=== PATIENT | male | born 1945 | race Caucasian/White ===

== ENCOUNTER 2020-10-04 13:51 | Observation (INO) | payer MEDICARE, BC ==
[2020-10-04 14:17] LABS: PTT,PARTIAL THROMBOPLSTIN TIME 24.4 SEC (23.2-32.3)
[2020-10-04 14:25] LABS: CHLORIDE,CL 100 mEq/L (98-106); SODIUM,NA 137 mEq/L (136-145)
[2020-10-04] MEDS ORDERED: Iopamidol 755 Mg/ML 100 ML Bottle IVPUSH ONE (15:13)
[2020-10-04] MEDS ORDERED: Sodium Chloride 0.9% 1,000 ML IV ONE (15:43)
[2020-10-04] MEDS ORDERED: Acetaminophen 325 MG Tab PO PRN (16:54)
[2020-10-04] MEDS ORDERED: Acetaminophen 500 MG Tab PO PRN (16:57)
[2020-10-04] MEDS: Apixaban 5 MG Tab PO SCH ×2 (18:23→19:01)
[2020-10-04] MEDS ORDERED: [UNRECOGNIZED DRUG - REMARK] PO SCH (20:00)
[2020-10-05] MEDS: Apixaban 5 MG Tab PO SCH (07:36)
[2020-10-05 07:40] VITALS: BP 130/61; PULSE 57
[2020-10-05] MEDS ORDERED: Aspirin 81 MG Tab.EC PO SCH (08:00)
[2020-10-05] MEDS ORDERED: Losartan 25 MG Tab PO SCH (08:00)
[2020-10-05] MEDS ORDERED: Simvastatin 40 MG Tab PO SCH (08:00)
[2020-10-05] MEDS ORDERED: Tamsulosin 0.4 MG Cap.ER PO SCH (08:00)
--- NOTE | 2020-10-05 09:37 | PCM.DCSUM1 ---
Discharge Summary - Hospital Course HPI Initial Comments: Efrain is a 75 yo gentleman who was admitted to the hospital yesterday for a PE. Patient was diagnosed with COVID on the 24 of September with onset of symptoms on the 17 of September. Patient had continued to feel tired, weak, dizzy,short of breath and right sided chest and back pain that just recently started. Patient had further work up and underwent CTA of the chest which did show a pulmonary embolism. Dr. Lindquist was in consultation with [place] on admit and agreed with initiating Eliquis and admission for close monitoring. Diagnosis: Stroke: No - Discharge Data Discharge Date: 10/05/20 Discharge Disposition: Home, Self-Care 01 Condition: Good - Referral to Home Health Primary Care Physician: Sage Lindquist MD - Discharge Diagnosis/Problem(s) (1) Pulmonary embolism associated with COVID-19 SNOMED Code(s): 566988422 ICD Code: U07.1 - COVID-19; I26.99 - OTHER PULMONARY EMBOLISM WITHOUT ACUTE COR PULMONALE Status: Acute Current Visit: Yes - Patient Summary/Data Hospital Course: Patient has done well during his time in the hospital. Patient hasn't required any oxygen with oxygen saturation maintaining in the mid 90's on room air. Telemetry has been benign since admit. - Patient Instructions Diet: Usual Diet as Tolerated Activity: As Tolerated - Discharge Plan *PRESCRIPTION DRUG MONITORING PROGRAM REVIEWED*: Not Applicable *COPY OF PRESCRIPTION DRUG MONITORING REPORT IN PATIENT MADDIE: Not Applicable Prescriptions/Med Rec: Apixaban [Eliquis] 5 mg PO BID #60 tablet Home Medications: Home Meds Acetaminophen [Tylenol Extra Strength] 1,000 mg PO BID PRN 08/28/16 [History] Chlorpheniramine Maleate [Allergy] 2 tab PO BEDTIME 08/28/16 [History] Ibuprofen 400 mg PO QID PRN 08/28/16 [History] Simvastatin [Zocor] 40 mg PO DAILY 08/28/16 [History] Tamsulosin HCl [Flomax] 0.4 cap PO DAILY 08/28/16 [History] Losartan/Hydrochlorothiazide [Losartan-HCTZ 100-12.5 MG] 1 each PO DAILY 10/04/20 [History] Apixaban [Eliquis] 5 mg PO BID #60 tablet 10/05/20 [Rx] Aspirin [Halfprin] 81 mg PO DAILY tab.ec 10/05/20 [Rx] Oxygen Therapy Mode: Room Air Patient Handouts: Pulmonary Embolism Referrals: Sage Lindquist MD [Primary Care Provider] - (2 weeks) - Discharge Summary/Plan Comment DC Time >30 min.: Yes Discharge Summary/Plan Comment: Patient hasn't had any set backs. Dr. Lindquist discussed current treatment and will discharge home today on Eliquis. Patient is to follow up with Dr. Lindquist in 2 weeks. May return to normal activity as tolerated. Discussed importance of deep breaths and symptoms to monitor for. Patient will be discharged today. Labs are stable with comparison to yesterday. Vital signs stable. - General Info Date of Service: 10/05/20 Functional Status: Reports: Pain Controlled, Tolerating Diet, Ambulating. Denies: New Symptoms - Review of Systems General: Reports: Fatigue HEENT: Reports: No Symptoms Pulmonary: Reports: Shortness of Breath, Pleuritic Chest Pain, Cough. Denies: Wheezing Cardiovascular: Reports: No Symptoms Gastrointestinal: Reports: No Symptoms Genitourinary: Reports: No Symptoms Skin: Reports: No Symptoms Neurological: Reports: No Symptoms - Patient Data Vitals - Most Recent: Last Vital Signs Temp 98.1 F 10/05/20 07:38 Pulse 57 L 10/05/20 07:38 Resp 18 10/05/20 07:38 BP 130/61 10/05/20 07:38 Pulse Ox 96 10/05/20 07:38 Weight - Most Recent: 210 lb Lab Results - Last 24 hrs: Laboratory Results - last 24 hr 10/04/20 10/04/20 10/04/20 Range/Units 13:58 13:59 13:59 WBC 7.3 (5.0-10.0) 10^3/uL RBC 4.43 L (4.50-6.00) 10^6/uL Hgb 13.6 L (14.0-18.0) g/dL Hct 41.2 (40.0-54.0) % MCV 93.0 (82.0-94.0) fL MCH 30.7 (27.0-32.0) pg MCHC 33.0 (33.0-38.0) g/dL RDW Coeff of Nhan 12.8 (11.0-15.0) % Plt Count 318 (150-400) 10^3/uL Neut % (Auto) 72.3 (35-85) % Lymph % (Auto) 13.4 (10-55) % [place] % (Auto) 13.1 (0-16) % Eos % (Auto) 1.1 (0-5) % Baso % (Auto) 0.1 (0-3) % Neut # (Auto) 5.24 (1.80-7.00) 10^3/uL Lymph # (Auto) 0.97 L (1.00-4.80) 10^3/uL [place] # (Auto) 0.95 H (0.00-0.80) 10^3/uL Eos # (Auto) 0.08 (0.00-0.45) 10^3/uL Baso # (Auto) 0.01 10^3/uL PT 11.1 (9.7-12.3) SEC INR 1.10 (0.92-1.18) APTT 24.4 (23.2-32.3) SEC D-Dimer, Quantitative (0.00-0.50) Sodium 137 (136-145) mEq/L Potassium 4.1 (3.5-5.0) mEq/L Chloride 100 (98-106) mEq/L Carbon Dioxide 30 (21-32) mmol/L BUN 23 H (7-18) mg/dL Creatinine 1.4 H (0.7-1.3) mg/dL Est Cr Clr Drug Dosing TNP Estimated GFR (MDRD) 50 L (>=60) mL/min Glucose 102 H (75-99) mg/dL Calcium 9.1 (8.4-10.1) mg/dL Total Bilirubin 0.7 (0.0-1.0) mg/dL AST 19 (15-37) U/L ALT 35 (12-78) U/L Alkaline Phosphatase 80 (46-116) U/L Creatine Kinase 47 (35-232) U/L Troponin I < 0.017 (0.00-0.06) ng/mL C-Reactive Protein 13.3 H (0.2-0.8) mg/dL NT-Pro-B Natriuret Pep 65 (0-1000) pg/mL Total Protein 7.7 (6.4-8.2) g/dL Albumin 3.1 L (3.4-5.0) g/dL 10/04/20 10/05/20 10/05/20 Range/Units 14:35 05:11 07:10 WBC 9.2 (5.0-10.0) 10^3/uL RBC 4.02 L (4.50-6.00) 10^6/uL Hgb 12.6 L (14.0-18.0) g/dL Hct 36.9 L (40.0-54.0) % MCV 91.8 (82.0-94.0) fL MCH 31.3 (27.0-32.0) pg MCHC 34.1 (33.0-38.0) g/dL RDW Coeff of Nhan 12.5 (11.0-15.0) % Plt Count 304 (150-400) 10^3/uL Neut % (Auto) 77.1 (35-85) % Lymph % (Auto) 9.3 L (10-55) % Sevier % (Auto) 11.7 (0-16) % Eos % (Auto) 1.7 (0-5) % Baso % (Auto) 0.2 (0-3) % Neut # (Auto) 7.06 H (1.80-7.00) 10^3/uL Lymph # (Auto) 0.85 L (1.00-4.80) 10^3/uL Sevier # (Auto) 1.07 H (0.00-0.80) 10^3/uL Eos # (Auto) 0.16 (0.00-0.45) 10^3/uL Baso # (Auto) 0.02 10^3/uL PT (9.7-12.3) SEC INR (0.92-1.18) APTT (23.2-32.3) SEC D-Dimer, Quantitative 4.40 H (0.00-0.50) Sodium 134 L (136-145) mEq/L Potassium 4.2 (3.5-5.0) mEq/L Chloride 101 (98-106) mEq/L Carbon Dioxide 26 (21-32) mmol/L BUN 19 H (7-18) mg/dL Creatinine 1.3 (0.7-1.3) mg/dL Est Cr Clr Drug Dosing 52.25 Estimated GFR (MDRD) 54 L (>=60) mL/min Glucose 118 H (75-99) mg/dL Calcium 8.5 (8.4-10.1) mg/dL Total Bilirubin (0.0-1.0) mg/dL AST (15-37) U/L ALT (12-78) U/L Alkaline Phosphatase (46-116) U/L Creatine Kinase (35-232) U/L Troponin I (0.00-0.06) ng/mL C-Reactive Protein (0.2-0.8) mg/dL NT-Pro-B Natriuret Pep (0-1000) pg/mL Total Protein (6.4-8.2) g/dL Albumin (3.4-5.0) g/dL Med Orders - Current: Current Medications Acetaminophen (Tylenol) 650 mg PO Q4H PRN PRN Reason: Pain (Mild 1-3)/fever Acetaminophen (Tylenol Extra Strength) 1,000 mg PO BID PRN PRN Reason: Pain Last Admin: 10/05/20 06:13 Dose: 1,000 mg Documented by: Apixaban (Eliquis) 10 mg PO BID MAGGY Stop: 10/10/20 20:01 Last Admin: 10/05/20 07:36 Dose: 10 mg Documented by: Aspirin (Halfprin) 81 mg PO DAILY [facility] Losartan Potassium (Cozaar) 50 mg PO DAILY [facility] Non-Formulary Medication (Chlorpheniramine Maleate [Allergy]) 2 tab PO BEDTIME [facility] Simvastatin (Zocor) 40 mg PO DAILY [facility] Tamsulosin HCl (Flomax) 0.4 mg PO DAILY [facility] Discontinued Medications Sodium Chloride (Normal Saline) 1,000 mls @ 999 mls/hr IV .BOLUS ONE Stop: 10/04/20 16:43 Last Admin: 10/04/20 15:59 Dose: 999 mls/hr Documented by: Iopamidol (Isovue-370 (76%)) 100 ml IVPUSH ONETIME ONE Stop: 10/04/20 15:14 Last Admin: 10/04/20 15:37 Dose: 100 ml Documented by: - Exam General: Reports: Alert, Oriented, Cooperative, No Acute Distress Neck: Reports: Supple Lungs: Reports: Clear to Auscultation, Normal Respiratory Effort Cardiovascular: Reports: Regular Rate, Regular Rhythm, No Murmurs GI/Abdominal Exam: Normal Bowel Sounds, Soft, Non-Tender Extremities: Normal Inspection, Non-Tender, No Pedal Edema Skin: Reports: Warm, Dry, Intact Psy/Mental Status: Reports: Alert, Normal Affect, Normal Mood
== END 2020-10-05 11:02 | disposition home or self-care (01) ==
LOC: CC.ACU 13:51 → CC.FCMC 13:51 → CC.MS 16:32 → UNDOADMOB 16:32 → CC.MS 16:54
PROVIDERS: ADMIT Nurse Practitioner Family; ATTEND Family Medicine
DX: U07.1 COVID-19 (principal); I26.99 Other pulmonary embolism without acute cor pulmonale; I10 Essential (primary) hypertension; N40.0 Benign prostatic hyperplasia without lower urinary tract symptoms; M16.9 Osteoarthritis of hip, unspecified; E78.5 Hyperlipidemia, unspecified; Z98.890 Other specified postprocedural states; Z79.899 Other long term (current) drug therapy; Z88.8 Allergy status to other drugs, medicaments and biological substances
CPT/HCPCS: 36415; 71046; 71275; 80048; 80053; 82550; 83880; 84484; 85025; 85379; 85610; 85730; 86140; 93005; A9270-GY; G0378; J7030; Q9967

== ENCOUNTER 2020-10-11 09:29 | Emergency (ER) | payer MEDICARE, BC ==
[2020-10-11 10:01] VITALS: PULSE 71
[2020-10-11 10:21] VITALS: BP 145/84
--- NOTE | 2020-10-11 11:11 | EDM.PDOC ---
ED HPI GENERAL MEDICAL PROBLEM - General Chief Complaint: General Stated Complaint: SOB/WEAK/COUGH/HEADACHE Time Seen by Provider: 10/11/20 10:54 Source of Information: Reports: Patient, Family () History Limitations: Reports: No Limitations - History of Present Illness INITIAL COMMENTS - FREE TEXT/NARRATIVE: States that his head feels "foggy and he has been having some headaches" since he had COVID. Also concerned about some bloating and feeling full in abdomen. He did have 3 BM this AM and since then his abdomen has improved. He states that the first 2 were formed and the 3rd one was more liquid. He denies any blood in the stool. No difficulty with urination. Had temp of 99.5 during the night which he has been having since he had COVID. No vomiting but states that his appetite hasn't been as good as before COVID. He has had some nausea which I discussed with them as possible side effect of the Eliquis. No chest pain or difficulty breathing. Onset: Gradual Generalized Pain Score (Numeric/FACES): 2 - Related Data Allergies Allergy/AdvReac Type Severity Reaction Status Date / Time lisinopril Allergy Rash Verified 10/04/20 17:04 tramadol Allergy Dizziness Verified 10/04/20 17:04 Home Meds: Home Meds Acetaminophen [Tylenol Extra Strength] 1,000 mg PO BID PRN 08/28/16 [History] Simvastatin [Zocor] 40 mg PO DAILY 08/28/16 [History] Tamsulosin HCl [Flomax] 0.4 cap PO DAILY 08/28/16 [History] Losartan/Hydrochlorothiazide [Losartan-HCTZ 100-12.5 MG] 1 each PO DAILY 10/04/20 [History] Apixaban [Eliquis] 5 mg PO BID #60 tablet 10/05/20 [Rx] DULoxetine [Cymbalta] 30 mg PO DAILY 10/11/20 [History] Meloxicam 15 mg PO DAILY 10/11/20 [History] diphenhydrAMINE [Benadryl] 50 mg PO BEDTIME PRN 10/11/20 [History] Past Medical History HEENT History: Reports: Impaired Vision Cardiovascular History: Reports: Hypertension Respiratory History: Reports: PE - Infectious Disease History Infectious Disease History: Reports: Other (See Below) (COVID) - Past Surgical History Cardiovascular Surgical History: Reports: None GI Surgical History: Reports: Colonoscopy Musculoskeletal Surgical History: Reports: Hip Replacement Social & Family History - Tobacco Use Tobacco Use Status *Q: Never Tobacco User - Caffeine Use Caffeine Use: Reports: None - Recreational Drug Use Recreational Drug Use: No - Living Situation & Occupation Living situation: Reports: , with Spouse Occupation: Retired ED ROS GENERAL - Review of Systems Review Of Systems: See Below Constitutional: Reports: Fever (up to 99.5 in the evening or during the night.) HEENT: Reports: No Symptoms Respiratory: Reports: No Symptoms Cardiovascular: Reports: No Symptoms GI/Abdominal: Reports: Abdominal Pain, Constipation, Nausea : Reports: No Symptoms Musculoskeletal: Reports: No Symptoms Skin: Reports: No Symptoms Neurological: Reports: Headache, Other ("brain foggy") Psychiatric: Reports: Anxiety ED EXAM, GENERAL - Physical Exam Exam: See Below Exam Limited By: No Limitations General Appearance: Alert, WD/WN, Mild Distress Ears: Normal External Exam, Normal Canal Nose: Normal Inspection Throat/Mouth: Normal Inspection, Normal Oropharynx, No Airway Compromise Head: Atraumatic, Normocephalic Neck: Normal Inspection, Supple, Non-Tender, Full Range of Motion Respiratory/Chest: Lungs Clear, Normal Breath Sounds Cardiovascular: Normal Peripheral Pulses, Regular Rate, Rhythm, No Edema GI/Abdominal: Normal Bowel Sounds, Soft, Non-Tender Back Exam: Normal Inspection Extremities: Normal Inspection, No Pedal Edema, Normal Capillary Refill Neurological: Alert, Oriented Psychiatric: Normal Affect Skin Exam: Warm, Dry, Intact Course - Vital Signs Last Recorded V/S: Last Vital Signs Temp 99.5 F 10/11/20 09:55 Pulse 71 10/11/20 09:55 Resp 16 10/11/20 09:55 BP 145/84 H 10/11/20 10:20 Pulse Ox 99 10/11/20 09:55 - Orders/Labs/Meds Orders: Active Orders 24 hr Category Date Time Status CULTURE URINE [RM] Stat Lab 10/11/20 09:52 Received Labs: Laboratory Tests 10/11/20 10/11/20 10/11/20 Range/Units 09:52 10:05 10:05 WBC 8.3 (5.0-10.0) 10^3/uL RBC 4.35 L (4.50-6.00) 10^6/uL Hgb 13.6 L (14.0-18.0) g/dL Hct 40.1 (40.0-54.0) % MCV 92.2 (82.0-94.0) fL MCH 31.3 (27.0-32.0) pg MCHC 33.9 (33.0-38.0) g/dL RDW Coeff of Nhan 12.7 (11.0-15.0) % Plt Count 525 H (150-400) 10^3/uL Neut % (Auto) 71.6 (35-85) % Lymph % (Auto) 12.6 (10-55) % [place] % (Auto) 12.7 (0-16) % Eos % (Auto) 2.9 (0-5) % Baso % (Auto) 0.2 (0-3) % Neut # (Auto) 5.96 (1.80-7.00) 10^3/uL Lymph # (Auto) 1.05 (1.00-4.80) 10^3/uL [place] # (Auto) 1.06 H (0.00-0.80) 10^3/uL Eos # (Auto) 0.24 (0.00-0.45) 10^3/uL Baso # (Auto) 0.02 10^3/uL Sodium 138 (136-145) mEq/L Potassium 4.5 (3.5-5.0) mEq/L Chloride 100 (98-106) mEq/L Carbon Dioxide 28 (21-32) mmol/L BUN 22 H (7-18) mg/dL Creatinine 1.4 H (0.7-1.3) mg/dL Est Cr Clr Drug Dosing 48.52 mL/min Estimated GFR (MDRD) 50 L (>=60) mL/min Glucose 102 H (75-99) mg/dL Calcium 9.9 (8.4-10.1) mg/dL Total Bilirubin 0.5 (0.0-1.0) mg/dL AST 45 H (15-37) U/L ALT 124 H (12-78) U/L Alkaline Phosphatase 90 (46-116) U/L Lactate Dehydrogenase 218 H (100-190) U/L Creatine Kinase 117 (35-232) U/L Troponin I 0.018 (0.00-0.06) ng/mL Total Protein 8.6 H (6.4-8.2) g/dL Albumin 3.3 L (3.4-5.0) g/dL Urine Color Yellow (YELLOW) Urine Appearance Clear (CLEAR) Urine pH 7.0 (4.5-8.0) Ur Specific [place] 1.020 (1.003-1.020) Urine Protein Negative (NEGATIVE) mg/dL Urine Glucose (UA) Negative (NEGATIVE) mg/dL Urine Ketones Negative (NEGATIVE) mg/dL Urine Occult Blood Small H (NEGATIVE) Urine Nitrite Negative (NEGATIVE) Urine Bilirubin Negative (NEGATIVE) Urine Urobilinogen 0.2 (0.2-1.0) EU/dL Ur Leukocyte Esterase Trace H (NEGATIVE) Urine RBC 0-5 (0-5) /HPF Urine WBC 10-20 H (0-5) /HPF Urine WBC Clumps Occasional H (NOT SEEN) /HPF Urine Bacteria Few H (NOT SEEN) /HPF - Re-Assessments/Exams Free Text/Narrative Re-Assessment/Exam: 10/11/20 1040- In to discuss the lab results with the pt and . Reassured that all were good. Liver enzymes are elevated slightly which si from the Eliquis. Nausea is most likely side effect of the ELiquis. As the abdominal discomfort improved after the BM this AM most likely due to constipation. Discussed that he brain fog that he is talking about could potentially last for several weeks to months. Low grade temps in the 99 range are not concerning at this time. Departure - Departure Time of Disposition: 11:08 Disposition: Home, Self-Care 01 Condition: Fair Clinical Impression: [id number] condition, Pulmonary embolism associated with COVID-19 - Discharge Information *PRESCRIPTION DRUG MONITORING PROGRAM REVIEWED*: Not Applicable *COPY OF PRESCRIPTION DRUG MONITORING REPORT IN PATIENT MADDIE: Not Applicable Instructions: COVID-19 Frequently Asked Questions Referrals: Sage Lindquist MD [Primary Care Provider] - Forms: ED Department Discharge Additional Instructions: Be as active as tolerated No ASA, ibuprofen, advil etc. Stop the Meloxicam Recheck with new concerns. Sepsis Event Note (ED) - Evaluation Sepsis Screening Result: No Definite Risk - Focused Exam Vital Signs: Vital Signs Temp Pulse Resp BP Pulse Ox 10/11/20 10:20 145/84 H 10/11/20 09:55 99.5 F 71 16 123/79 99 - Problem List & Annotations (1) [id number] condition SNOMED Code(s): 533695484, [id number] Code(s): B94.8 - SEQUELAE OF OTH INFECTIOUS AND PARASITIC DISEASES Status: Acute Priority: High (2) Pulmonary embolism associated with COVID-19 SNOMED Code(s): 385338030 Code(s): U07.1 - COVID-19; I26.99 - OTHER PULMONARY EMBOLISM WITHOUT ACUTE COR PULMONALE Status: Chronic Priority: Medium - Problem List Review Problem List Initiated/Reviewed/Updated: Yes - My Orders Last 24 Hours: My Active Orders 10/11/20 09:52 CULTURE URINE [RM] Stat - Assessment/Plan Last 24 Hours: My Active Orders 10/11/20 09:52 CULTURE URINE [RM] Stat
== END 2020-10-11 11:17 | disposition home or self-care (01) ==
LOC: CC.ED 09:29
DX: U07.1 COVID-19 (principal); I26.99 Other pulmonary embolism without acute cor pulmonale; Z88.5 Allergy status to narcotic agent; Z88.8 Allergy status to other drugs, medicaments and biological substances; Z79.01 Long term (current) use of anticoagulants; Z86.711 Personal history of pulmonary embolism; Z79.899 Other long term (current) drug therapy
CPT/HCPCS: 36415; 80053; 81001; 82550; 83615; 84484; 85025; 87086; 87088; 87186; 93005; 99284; 99284-25

== ENCOUNTER → 2021-09-06 | Day surgery (SDC) | payer MEDICARE, BC ==
[~2021-09-06] MED LIST: Ketamine 200 MG/20 ML MDV ONE; Lactated Ringers 1,000 ML IV SCH; Propofol 200 MG/20 ML SDV ONE; ePHEDrine 50 MG/ML SDV ONE; fentaNYL 100 MCG/2 ML SDV ONE
[2021-09-06 11:06] VITALS: BP 120/65; PULSE 64
--- NOTE | 2021-09-06 14:32 | OR ---
DATE OF OPERATION: 09/06/2021 PREOPERATIVE DIAGNOSIS: 1. FAMILY HISTORY OF COLON CANCER. 2. HISTORY OF POLYPS. POSTOPERATIVE DIAGNOSIS: 1. FAMILY HISTORY OF COLON CANCER. 2. HISTORY OF POLYPS. SURGEON: Sage Lindquist MD PROCEDURE: FULL-LENGTH COLONOSCOPY WITH FORCEPS POLYP REMOVAL X1. ANESTHESIA: MAC. COMPLICATIONS: None. SPECIMEN: 1. Small tubular adenoma, splenic flexure. 2. Biopsy x2 lymphoid aggregates, descending colon. FINDINGS: 1. Full-length colonoscopy. 2. Tubular adenoma, splenic flexure. 3. Diffuse lymphoid aggregates, chronic. RECOMMENDATIONS: Followup colonoscopy in 5 years. INDICATIONS: Efrain is a 76-year-old who has a history of polyps removed in the past. He has a sister with colon cancer. It has been 5 years since his last scope. DESCRIPTION OF PROCEDURE: The patient was prepped and draped, placed in the left lateral decubitus position. A lubricated Olympus colonoscope was inserted and easily advanced to the cecum. Direct visualization of ileocecal valve and appendiceal orifice was accomplished. The bowel prep was adequate. Upon withdrawal of the scope, the cecum, ascending, and transverse colon were completely benign. The patient had a small tubular adenoma, probably 3 mm at the splenic flexure, removed with a forceps biopsy x2 in its entirety. Once again, starting in the proximal descending colon extending into the sigmoid, the patient has lymphoid aggregates throughout. We did do biopsy of two of them for confirmation. The rest of the colon showed no other signs of polyps, mass, ulceration or bleeding sites. No vascular abnormalities or signs of colitis. The rectal vault was unremarkable. Retroflexion showed no perianal lesions. Air was suctioned, scope removed without complication. LESLEY/REX /[id number]
== END ==
LOC: CC.SDS 08:53
PROVIDERS: ATTEND Family Medicine
DX: Z12.11 Encounter for screening for malignant neoplasm of colon (principal); D12.3 Benign neoplasm of transverse colon; D12.0 Benign neoplasm of cecum; N40.0 Benign prostatic hyperplasia without lower urinary tract symptoms; E78.5 Hyperlipidemia, unspecified; M48.061 Spinal stenosis, lumbar region without neurogenic claudication; I10 Essential (primary) hypertension; Z88.8 Allergy status to other drugs, medicaments and biological substances; Z80.0 Family history of malignant neoplasm of digestive organs; Z79.899 Other long term (current) drug therapy; Z98.890 Other specified postprocedural states
CPT/HCPCS: 45380; 93005; J2704; J3010; J7120; 00812; 88305